=== PATIENT | male | born 1960 | race Caucasian/White ===

== ENCOUNTER 2017-11-25 08:51 | Emergency (ER) | payer OTHER ==
[2017-11-25] MEDS ORDERED: IBUPROFEN 600 MG TAB PO ONE (09:11)
--- NOTE | 2017-11-25 09:13 | EDPHY ---
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 He had some pain in his foot but this became much worse when he tried walking now he is unable to weight bear on his right foot. He localizes the pain to his right heel and medial side. He denies any back pain. He feels like the top of his foot is somewhat numb. He denies any pain to his left foot. He denies any other pain or injury. REVIEW OF SYSTEMS: As in HPI, and all other systems reviewed and are negative Smoking Status: Former smoker Physical Exam: General Appearance: Alert and no distress. Head: Normocephalic, atraumatic Eyes: Pupils equal and round no injection. Extraocular movements are intact. Musculoskeletal: Neck is supple and nontender. Back with no bony tenderness. Extremities: Right foot positive medial ankle swelling and heel swelling. Full range of motion of ankle in plantar and dorsiflexion. No malleolar tenderness, no midfoot tenderness, positive tenderness over calcaneus and below medial malleolus, distal cap refill less than 2 sec, DP pulse 2+ and equal to the left, distal sensation intact. Skin: No rashes or lesions except as described above. Constitutional: Initial Vital Signs Temperature (C) 36.9 C 11/25/17 08:56 Heart Rate 60 11/25/17 08:56 Respiratory Rate 16 11/25/17 08:56 Blood Pressure 130/80 H 11/25/17 08:56 O2 Sat (%) 96 11/25/17 08:56 O2 Delivery Mode Room Air Allergies/Adverse Reactions: No Known Allergies Allergy (Unverified 11/25/17 09:02) Home Medications: Medication Instructions Recorded Hydrocodone/APAP 5/325 [[place] 1 - 2 tab PO Q4H PRN #12 tab 11/25/17 5/325 (*)] Statin 11/25/17 MDM/Departure - MDM Medications Given: Discontinued Medications Ibuprofen (Motrin) 600 mg PO EDNOW ONE Stop: 11/25/17 09:12 Last Admin: 11/25/17 09:22 Dose: 600 mg ED Course/Re-evaluation: 49-year-old man presents with heel pain after jumping off dumpster from a height. And now nonambulatory. I was concerned about fracture on x-rays were obtained. Patient was noted to have a calcaneus fracture. Initially he declined pain medicines. He was then given ibuprofen with some relief but continued to have some pain. Patient was placed in a splint. I did re- evaluate his back and left foot after discovery of calcaneus fracture and patient continued to deny back pain or pain in his left foot. I discussed the case with Dr. Galvan, on-call for orthopedics will see the patient in follow-up. I discussed home care and pain management return precautions with the patient. - Depart Disposition: Home, Routine, Self-Care Clinical Impression: Calcaneus fracture, right Qualifiers: Encounter type: initial encounter Calcaneus location: unspecified portion of calcaneus Fracture type: closed Fracture alignment: nondisplaced Qualified Code( s): S92.001A - Unspecified fracture of right calcaneus, initial encounter for closed fracture Condition: Fair Instructions: Calcaneal Fracture (ED) Additional Instructions: You were seen by Dr. Beckie Galan today. You have a broken calcaneus (heel bone). Keep this elevated above the level of the heart and ice through the splint it for the next 48 hr. Do not put any weight on her right foot. Please follow up within [address] Galvan, the orthopedist, for further evaluation and treatment. Continue to take ibuprofen 600 mg 4 times a day as needed for pain in you may take [place] as needed for severe pain. Return for any worsening or new concerns. Prescriptions: Hydrocodone/APAP 5/325 [[place] 5/325 (*)] 1 - 2 tab PO Q4H PRN #12 tab PRN Reason: Pain, Moderate Referrals: NONE *PRIMARY CARE P,. [Primary Care Provider] - As per Instructions Dl Galvan MD [Medical Doctor] - As per Instructions
[2017-11-25 11:38] VITALS: BP 115/75
== END 2017-11-25 11:25 | disposition home or self-care (01) ==
LOC: CED 08:51
PROC: 2W3SX1Z Immobilization of Right Foot using Splint (ICD-10-PCS; principal; 2017-11-25)
DX: S92.001A Unspecified fracture of right calcaneus, initial encounter for closed fracture (principal); W17.89XA Other fall from one level to another, initial encounter; Y93.H9 Activity, other involving exterior property and land maintenance, building and construction; Y99.0 Civilian activity done for income or pay
CPT/HCPCS: 73610-PO; 73650-PO